=== PATIENT | male | born 2005 | race Hispanic/Latino ===

== ENCOUNTER 2023-05-02 02:48 | Emergency (ER) | payer SELFPAY ==
[2023-05-02] MEDS ORDERED: Famotidine 20 MG TAB ONE (03:12)
[2023-05-02] MEDS ORDERED: predniSONE 20 MG TAB ONE (03:12)
[2023-05-02] MEDS ORDERED: diphenhydrAMINE 25 MG CAP ONE (03:12)
== END 2023-05-02 04:55 | disposition home or self-care (01) ==
LOC: ERS 02:48
DX: T78.1XXA Other adverse food reactions, not elsewhere classified, initial encounter (principal); F17.290 Nicotine dependence, other tobacco product, uncomplicated
CPT/HCPCS: 99283; J7512